=== PATIENT | female | born 1960 | race Caucasian/White ===

== ENCOUNTER 2023-05-26 06:20 | Outpatient (RCR) | payer OTHER, SELFPAY | END 2023-05-26 23:59 | disposition home or self-care (01) | LOC: RPT 06:20 | PROVIDERS: ATTENDING PHYSICIAN Orthopaedic Surgery; FAMILY PHYSICIAN Nurse Practitioner | DX: M17.0 Bilateral primary osteoarthritis of knee (principal); Z73.6 Limitation of activities due to disability; R26.2 Difficulty in walking, not elsewhere classified; M62.81 Muscle weakness (generalized) | CPT/HCPCS: 97010; 97110; 97162 ==

== ENCOUNTER → 2023-06-10 14:10 | Outpatient (REF) | payer OTHER, SELFPAY | LOC: HWRAD 14:10 | PROVIDERS: ATTENDING PHYSICIAN Advanced Practice Midwife; FAMILY PHYSICIAN Nurse Practitioner | DX: M85.80 Other specified disorders of bone density and structure, unspecified site (principal); Z12.31 Encounter for screening mammogram for malignant neoplasm of breast | CPT/HCPCS: 77063; 77067; 77080 ==

== ENCOUNTER 2023-06-28 14:17 | Outpatient (RCR) | payer OTHER, SELFPAY | END 2023-06-28 23:59 | disposition home or self-care (01) | LOC: RPT 14:17 | PROVIDERS: ATTENDING PHYSICIAN Orthopaedic Surgery; FAMILY PHYSICIAN Nurse Practitioner | DX: M17.0 Bilateral primary osteoarthritis of knee (principal); Z73.6 Limitation of activities due to disability; R26.2 Difficulty in walking, not elsewhere classified; M62.81 Muscle weakness (generalized); R20.0 Anesthesia of skin | CPT/HCPCS: 97010; 97110; 97112 ==

== ENCOUNTER 2023-07-27 14:24 | Outpatient (RCR) | payer OTHER, SELFPAY | END 2023-08-05 13:52 | disposition home or self-care (01) | LOC: RPT 14:24 | PROVIDERS: ATTENDING PHYSICIAN Orthopaedic Surgery; FAMILY PHYSICIAN Nurse Practitioner | DX: M17.0 Bilateral primary osteoarthritis of knee (principal); Z73.6 Limitation of activities due to disability | CPT/HCPCS: 97110; 97112 ==

== ENCOUNTER → 2023-08-19 06:21 | Day surgery (SDC) | payer OTHER, SELFPAY | LOC: GI 06:21 | PROVIDERS: ATTENDING PHYSICIAN Internal Medicine Gastroenterology | DX: D12.3 Benign neoplasm of transverse colon (principal); K63.5 Polyp of colon; K64.8 Other hemorrhoids; R19.4 Change in bowel habit; K30 Functional dyspepsia; R12 Heartburn | CPT/HCPCS: 45385; 45380; 88305; 88342 ==

== ENCOUNTER 2023-12-28 14:02 | Outpatient (RCR) | payer OTHER, SELFPAY | END 2023-12-28 23:59 | disposition home or self-care (01) | LOC: RPT 14:02 | PROVIDERS: ATTENDING PHYSICIAN Nurse Practitioner | DX: N81.10 Cystocele, unspecified (principal); Z73.6 Limitation of activities due to disability | CPT/HCPCS: 97110; 97112; 97161; 97530 ==

== ENCOUNTER 2024-01-25 13:04 | Outpatient (RCR) | payer OTHER, SELFPAY | END 2024-01-25 23:59 | disposition home or self-care (01) | LOC: RPT 13:04 | PROVIDERS: ATTENDING PHYSICIAN Nurse Practitioner | DX: N81.10 Cystocele, unspecified (principal); Z73.6 Limitation of activities due to disability; N81.6 Rectocele | CPT/HCPCS: 97110; 97112 ==

== ENCOUNTER 2024-03-02 09:42 | Outpatient (RCR) | payer OTHER, SELFPAY | END 2024-03-02 23:59 | disposition home or self-care (01) | LOC: RPT 09:42 | PROVIDERS: ATTENDING PHYSICIAN Nurse Practitioner | DX: N81.10 Cystocele, unspecified (principal); Z73.6 Limitation of activities due to disability; N81.6 Rectocele | CPT/HCPCS: 97110 ==